=== PATIENT | female | born 1995 | race Caucasian/White ===

== ENCOUNTER 2024-12-10 17:22 | Outpatient (CLI) | payer SELFPAY ==
--- NOTE | 2024-12-10 17:30 | CRLHL7_ITS ---
For Patients: As a result of the Century Cures Act, medical imaging exams and procedure reports are released immediately into your electronic medical record. You may view this report before your referring provider. If you have questions, please contact your health care provider. OB ULTRASOUND LESS THAN 14 WEEKS, 12/10/2024 CLINICAL HISTORY: Dating and viability. COMPARISON: None. TECHNIQUE: Grayscale and color Doppler ultrasound of the uterus and ovaries from a transabdominal and transvaginal approach. Transvaginal ultrasound of the pelvis was performed to better evaluate the genitourinary organs such as the ovaries and/or endometrium. FINDINGS: Imaging: TV. LMP: 10/11/2024. LIZ by LMP: 07/18/2025. GA: 8 weeks 4 days. CRL: 2.3 cm, 9 weeks 0 days. LIZ 07/15/2025. FHR: 184 bpm. GEST SAC: 2.5 cm, appears WNL. YOLK SAC: 3.7 mm, appears WNL. RIGHT OV: 4.1 x 2.6 x 2.9 cm. CL. LEFT OV: 3.0 x 1.2 x 1.5 cm. IMPRESSION: 1. Single living intrauterine measures 9 weeks 0 days and sonographic due date 07/15/2025. 2. Subchorionic hemorrhage measures 1.0 x 2.1 x 1.8 cm. Eric Escalante M.D. Diagnostic Radiologist [email or web address] Transcribed: 9:35 am DW/Dictated by: Eric Escalante MD @ 12/11/2024 6:43:00 AM (Electronically Signed)
== END 2024-12-10 17:23 | disposition home or self-care (01) ==
LOC: US 17:23
PROVIDERS: Visit Provider Advanced Practice Midwife
DX: O20.9 Hemorrhage in early pregnancy, unspecified (principal); Z3A.09 9 weeks gestation of pregnancy
CPT/HCPCS: 76817

== ENCOUNTER 2024-12-10 18:26 | Outpatient (CLI) | payer SELFPAY | END 2024-12-10 18:27 | disposition home or self-care (01) | PROVIDERS: Visit Provider Advanced Practice Midwife | DX: Z34.91 Encounter for supervision of normal pregnancy, unspecified, first trimester (principal) | CPT/HCPCS: 83020; 83021; 85660; 86592; 86703; 86704; 86706; 86762; 86787; 86803; 86850; 86900; 86901; 87086; 87340 ==